=== PATIENT | male | born 1995 | race Hispanic/Latino ===

== ENCOUNTER 2018-10-16 02:07 | Emergency (ER) | payer OTHER ==
[2018-10-16 02:32] VITALS: RESP 18
[2018-10-16] MEDS ORDERED: Sodium Chloride 0.9% 1,000 ML IV STA ×2 (02:38→03:37)
--- NOTE | 2018-10-16 02:45 | ED PDOC ---
HPI: Psych/Substance Abuse Time Seen by Provider: 10/16/18 02:23 Chief Complaint (Nursing): Alcohol Ingestion Chief Complaint (Provider): ETOH History Per: EMS, Other (friend) Additional Complaint(s): 23 y/o male brought in by EMS with friend for evaluation of alcohol intoxication. As per friend, patient was drinking "a lot" of whiskey and beer tonight, states while at the pizza place afterwards he dropped to his knees and began vomiting. Denies head injury, LOC. Past Medical History Reviewed: Historical Data, Nursing Documentation, Vital Signs Vital Signs: Last Vital Signs Temp Pulse 84 10/16/18 02:30 Resp 18 10/16/18 02:30 BP 127/79 10/16/18 02:30 Pulse Ox 98 10/16/18 02:30 - Medical History PMH: Seizures - Surgical History Surgical History: No Surg Hx - Family History Family History: States: No Known Family Hx - Allergies Allergies/Adverse Reactions: Allergies Allergy/AdvReac Type Severity Reaction Status Date / Time Unobtainable Allergy Verified 10/16/18 02:30 Review of Systems ROS Statement: Except As Marked, All Systems Reviewed And Found Negative Gastrointestinal: Positive for: Nausea, Vomiting Physical Exam - Reviewed Nursing Documentation Reviewed: Yes Vital Signs Reviewed: Yes - Physical Exam Appears: Positive for: Well, Non-toxic, Uncomfortable (actively vomiting) Head Exam: Positive for: ATRAUMATIC, NORMAL INSPECTION, NORMOCEPHALIC Skin: Positive for: Warm, Diaphoresis, Pallor Eye Exam: Positive for: Normal appearance ENT: Positive for: Normal ENT Inspection Cardiovascular/Chest: Positive for: Regular Rate, Rhythm Respiratory: Positive for: Normal Breath Sounds Gastrointestinal/Abdominal: Positive for: Normal Exam Back: Positive for: Normal Inspection Extremity: Positive for: Normal ROM Neurologic/Psych: Positive for: Alert (responsive to verbal stimuli) - Laboratory Results Result Diagrams: 10/16/18 02:45 10/16/18 02:45 - ECG O2 Sat by Pulse Oximetry: 98 - Progress ED Course And Treament: -accucheck -cbc -cmp -alcohol -IV NS bolus -IV zofran 4:30 Patient sleeping; no distress. Vitals stable on monitor 6:00 Patient awake, alert, oriented x3. Ambulating steady gait. Tolerating PO Patient requires no further intervention in the ED and is stable for discharge at this time Return precautions given Disposition - Clinical Impression Clinical Impression: Alcohol intoxication - Patient ED Disposition Is Patient to be Admitted: No Counseled Patient/Family Regarding: Studies Performed, Diagnosis, Need For Followup - Disposition Disposition: Routine/Home Disposition Time: 06:00 Condition: IMPROVED Instructions: Alcohol Use - When Is Drinking a Problem?
[2018-10-16 02:52] LABS: BASO # 0.2 K/uL (0.0-0.2); BASO % 1.3 % (0.0-2.0); EOS # 0.2 K/uL (0.0-0.7); EOS % 1.1 % (0.0-4.0); HEMOGLOBIN 14.8 g/dL (12.0-18.0); LYMPH # 6.7 K/uL (1.0-4.3); MEAN CORPUSCULAR HEMOGLOBIN 30.3 pg (27.0-31.0); MEAN PLATELET VOLUME 8.2 fl (7.2-11.7); MONO # 0.7 K/uL (0.0-0.8); MONO % 4.7 % (0.0-10.0); NEUT # 6.3 K/uL (1.8-7.0); NEUT % 44.9 % (50.0-75.0); NRBC % 0.3 % (0.0-0.0); RBC 4.87 Mil/uL (4.40-5.90); RED CELL DISTRIBUTION WIDTH 13.3 % (11.5-14.5)
[2018-10-16 03:01] LABS: ALB/GLOB RATIO 1.4 (1.0-2.1); ALBUMIN 4.8 g/dL (3.5-5.0); ALT/SGPT 39 U/L (21-72); AST/SGOT 40 U/L (17-59); BLOOD UREA NITROGEN 19 mg/dl (9-20); CALCIUM 9.2 mg/dL (8.4-10.2); GFR NON-AFRICAN AMERICAN > 60
[2018-10-16 06:24] VITALS: BP 117/59; PULSE 64; TEMP 97.9
[2018-10-16 20:41] VITALS: O2SAT 98
== END 2018-10-16 06:36 | disposition home or self-care (01) ==
LOC: H.ER 02:07
DX: F10.129 Alcohol abuse with intoxication, unspecified (principal)
CPT/HCPCS: 80053; 80320; 82948; 85025; 96361; 96374; 99283; J2405; J7030